=== PATIENT | female | born 1995 | race Hispanic/Latino ===

== ENCOUNTER 2017-12-29 16:00 | Outpatient (CLI) | payer MEDICAID ==
[2017-12-29] MEDS ORDERED: LACTATED RINGERS 500 ML IV ONE (16:17)
[2017-12-29 16:37] LABS: Bilirubin,Urine NEG (Negative); Blood,Urine NEG (Negative); Color,Urine Yellow (Yellow); Mucus,Urine FEW /HPF; Protein,Urine <15 mg/dL mg/dL (Negative); Urobilinogen,Urine < 2.0 mg/dL (<2.0); WBC,Urine < 1.0 /HPF (0.0-6.0)
== END 2017-12-29 17:35 | disposition home or self-care (01) ==
LOC: TRG 16:00
PROVIDERS: ATTEND Obstetrics & Gynecology
DX: O47.03 False labor before 37 completed weeks of gestation, third trimester (principal); Z3A.31 31 weeks gestation of pregnancy
CPT/HCPCS: 59025; 81001; J7120

== ENCOUNTER 2021-03-13 20:46 | Emergency (ER) | payer SELFPAY ==
[2021-03-13 21:35] VITALS: BP 120/75
== END 2021-03-13 23:00 | disposition left against medical advice (07) ==
LOC: ED 20:46
DX: Z00.8 Encounter for other general examination (principal); Z53.21 Procedure and treatment not carried out due to patient leaving prior to being seen by health care provider